=== PATIENT | male | born 1955 | race Caucasian/White ===

== ENCOUNTER 2023-11-27 22:34 | Emergency (ER) | payer MEDICARE, OTHER, SELFPAY ==
[2023-11-27 22:41] VITALS: BP 153/91
[2023-11-27 22:43] LABS: Glucose - Point of Care 143 mg/dl (70-99)
--- NOTE | 2023-11-27 22:44 | ED.GENMED ---
History of Present Illness
General
Chief Complaint: Fall
Source: patient and ambulance crew
Exam Limitations: altered mental status
Time Seen by Provider: 11/27/23 22:37
Nursing documentation reviewed up to this point in time: agreed with
History of Present Illness
History of Present Illness:
This is a 68-year-old gentleman who resides at home with his . He arrives via EMS with history of suffering a mechanical fall while attempting to take something out of his car. [place] recently [place] [facility] [place]
He fell onto his left side striking the left side of his head. Apparently witnessed by . He arrives via EMS and upon arrival is noted to have significant expressive aphasia/significant word searching which apparently is new.
There is also reported history of alcohol abuse.
A list of medications has accompanied the patient which includes: Jardiance, metformin, atorvastatin, glucosamine, B12, B1, B complex, Rybelsus, citalopram, quetiapine fumarate.
History is significantly limited due to patient's significant expressive aphasia. He is able to follow a few simple commands.
We are awaiting 's arrival.
No old records to review.
Past History
Past History
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
ED Past Surgical History: Appendectomy and Orthopedic (Lumbar spinal surgery/spinal fusion, spinal stimulator; carpal tunnel release, rotator cuff repair)
Social History
Tobacco: Smoker
Alcohol: Former
Drug: None
Personal:
Living: with family
Employment: Retired
Family History
Family History: Unable to obtain
Phy Exam
Physical Exam
Physical Exam:
TRAUMA EXAM:
VITAL SIGNS: Vital signs reviewed, cooperative
DISTRESS: No active disease
EYES: Pupils reactive, extraocular muscles appear intact/full.
NOSE: No deformity or epistaxis
FACE AND SCALP: There is contusion/abrasion left lateral facial region with no active bleeding. There is a 2.5 cm laceration left lateral brow with abrasion medial aspect of the laceration. minimal bleeding. Mild local tenderness to palpation
left lateral facial region.
NECK: Supple, no midline bony tenderness, no step-off deformity.
BACK: Back nontender, pelvis stable to compression
RESPIRATORY: No distress, breath sounds normal, mild to moderate tenderness left anterior chest wall with mild STS left anterior chest wall. no crepitus.
CARDIAC: No murmur, pulses equal and strong
ABDOMEN: Soft nontender bowel sounds normal
SKIN: Warm and dry, normal color. Moderately tanned sun exposed skin.
EXTREMITIES: There is a 1 cm very superficial abrasion ulnar aspect of the left hand as well as contusion with mild ecchymosis ulnar aspect of the left wrist. No significant tenderness to palpation and full wrist range of motion with mild pain with
full flexion and extension of left wrist. There is a 1.5 cm very superficial skin abrasion left lateral knee. No ecchymosis nor soft tissue swelling, no tenderness. Full knee and hip range of motion without difficulty nor pain.
NEUROLOGICAL: Patient is awake and alert and able to follow a few simple commands but exhibits significant expressive aphasia/significant word searching. Motor strength is equal and full 5/5 bilaterally. No drift. Gross sensation appears intact.
PSYCH: Mood affect normal
Course
Orders/Labs/Results
Orders:
Orders
11/27/23 22:42
Cardiac Monitoring- Treatment ONCE
11/27/23 22:43
CT Cervical Spine W/o Iv Contr Urgent
Comment:
Reason For Exam: fall, head injury, confusion, intoxicated
CT Facial Bones W/o Iv Contras Urgent
Comment:
Reason For Exam: fall, left facial trauma
CT Head W/o Iv Contrast Urgent
Comment:
Reason For Exam: fall head injury, confusion
11/27/23 22:44
Bedside Glucose- Treatment ONCE
11/27/23 22:48
Alcohol Urgent
Complete Blood Count/With Diff Urgent
Comprehensive Metabolic Panel Urgent
Lipase Urgent
Protime/PTT Urgent
11/27/23 23:02
CR Wrist - Left Min 3 Views Urgent
Comment:
Reason For Exam: fall, ulnar wrist pain/contusion
11/27/23 23:58
Urinalysis Reflex To Culture Urgent
Date Specimen was Collected: 11/27/23
Time Specimen was Collected: 23:57
Urine Drug Abuse Screen Urgent
Date Specimen was Collected: 11/27/23
Time Specimen was Collected: 23:57
11/28/23 00:37
Ketorolac [Toradol] 30 mg IV NOW STA
Ribs, Left 3 View W/PA Chest CR [CR Ribs-left 3 Vw W/pa Chest] Urgent
Comment:
Reason For Exam: fall, left ant chest contusion/pain
11/28/23 00:42
Cephalexin Monohydrate [Keflex] 500 mg PO NOW STA
Abnormal Lab Results
11/27/23 11/27/23 11/27/23
22:41 22:48 23:58
MCHC 32.7 L g/dL
(33.0-37.0)
Abs Immat Gran (auto) 0.1 H 10^3/uL
(0-0.05)
Absolute Monos (auto) 0.7 H 10^3/uL
(0.1-0.6)
Immature Gran % 0.8 H %
(0-0.5)
BUN 25 H mg/dl
(9-20)
Glucose 140 H mg/dl
(70-99)
Lipase 389 H U/L
(23-300)
Urine Glucose 3+ A
(Negative)
POC Glucose 143 H mg/dl
(70-99)
11/27/23 22:48
11/27/23 22:48
Vital Signs
Initial and Last Documented VS:
Initial Vital Signs
Pulse Resp
78 16
11/27/23 22:40 11/27/23 22:40
Last Documented Vital Signs
Pulse Resp BP Pulse Ox
82 19 156/81 94
11/28/23 00:52 11/28/23 00:52 11/28/23 01:12 11/28/23 01:13
Procedures
Laceration Closure
Left Lateral Eye brow:
Status of Wound: clean
Description of Wound Edges: ragged and surrounded by abrasion
Preparation: cleaned with saline and cleaned with Betadine
Anesthesia: 1% Lidocaine with epi
Revision/Debridement: routine- no revision and irrigate-direct pressure
Wound exploration: explored to base- no FB and no tendon involvement
Type of Closure: single layer closure
Skin Closure Material: 5-0 nylon
Number of sutures: 5
MDM/Problems Addressed
Differential Diagnosis Includes:
Concern for acute traumatic intracranial bleeding, concern for acute CVA, alcohol intoxication.
Due to concern for acute expressive aphasia, confusion, concern for alcohol intoxication accompanied with head injury, left facial injury, will check CT of the head, CT of the cervical spine as well as CT facial bones.
Will check labs including alcohol and UDS.
On exam he is also noted to have very superficial abrasion left lateral knee, left lateral hand as well as ecchymosis to left ulnar aspect of the wrist. Will check left wrist x-ray. He has full range of motion of extremities without difficulty nor
apparent pain.
Chronic conditions affecting care: DM, Psychiatric illness and Other (History of alcohol abuse)
*Radiology
Radiology exam reviewed: preliminary read by ED provider (Left wrist x-ray is negative for fracture. Left ribs/chest x-ray are unremarkable. No evidence of rib fracture, no pneumothorax.) and radiology read reviewed (CT of the head, cervical
spine, facial bones shows no evidence of acute traumatic finding.)
*Pulse Oximetry
Patient hypoxic: no
*Densitometer Reader Interpretation
Rate: normal
Interpretation: normal
Rhythm: sinus
*Critical Care Note
Total Time (30-74mins, 75-104mins- exclusive of procedures): Not Applicable
Update Note
Update Note:
11/27/2023 2255 PM
is now at bedside and reports the patient has prior history of alcohol abuse with history of alcohol related dementia with expressive aphasia that is chronic and unchanged. He has been sober for at least the past 6 months and denies recent
alcohol use.
She and her [place] [facility] [place], returned tonight and he was grabbing a cooler out of the car when he suffered a mechanical fall which she did not witness but heard the thud and found her lying on his left side, he was
unable to get up and at the time was complaining of some left wrist pain and left hip pain. She called 911 and notes that patient generally goes to [facility] but was told that [facility] was busy and thus came to [facility] instead.
He is up-to-date with Tdap having received this with annual influenza vaccine just last week.
11/28/[address] head, cervical spine, facial bones showed no acute fracture.
Left lateral brow laceration suture repaired.
Patient now complains of some focal left anterior chest pain and noted to have moderate tenderness on palpation left anterior chest wall with mild local soft tissue swelling. Concern for contusion, concern for rib fracture. He continues to have no
respiratory distress. Will check chest x-ray/left rib series.
Will medicate for pain with an IV dose of Toradol.
11/28/2023 0124 AM
Patient feeling improved after an IV dose of Toradol.
Chest x-ray/rib series shows no evidence of rib fracture, no pneumothorax nor pleural effusion.
Labs are unremarkable. Lipase minimally elevated but patient continues to have no abdominal pain and abdomen remains soft without appreciable tenderness.
Will discharge to home with prescription for 1 week course of Keflex.
Discussed routine sutured wound care.
Tylenol versus ibuprofen as needed for pain.
Follow-up with PCP for recheck.
ED Attending Note
-
Portions of this chart may have been created with voice recognition software.� Occasional wrong word or��sound alike� substitutions may have occurred due to the inherent limitations of voice recognition software.
Discharge Plan
Departure
Patient Disposition: Home (Routine Discharge)
Date of Disposition: 11/28/23
Time of Disposition: 01:17
Patient with high blood pressure during this ER visit?: No
Condition: Good
Discharge Problem:
Slip and fall at home, Laceration of eyebrow, left, left facial contusion, Contusion of left chest wall, Contusion of left wrist, initial encounter, left lateral knee abrasion
Instructions: Head Injury in Adults (DC), Contusion (DC), Laceration Repair With Stitches (DC), Preventing falls in adults, Skin Abrasions (DC)
Prescriptions:
New
cephalexin 500 mg capsule
1,000 mg PO BID 7 Days Qty: 28 0RF
No Action
quetiapine 25 mg Tablet
25 mg PO HS
atorvastatin 40 mg Tablet
40 mg PO HS
metformin 500 mg Tablet
500 mg PO BID
citalopram 10 mg Tablet
10 mg PO DAILY
cyanocobalamin (vitamin B-12) [Vitamin B-12] 1,000 mcg Tablet
1,000 mcg PO DAILY
thiamine HCl (vitamin B1) [Vitamin B-1] 250 mg Tablet
250 mg PO DAILY
vitamin B complex [B Complex] Capsule
1 cap PO DAILY
Jardiance 10 mg Tablet
10 mg PO DAILY
Rybelsus 14 mg Tablet
14 mg PO DAILY
Referrals:
Naveen Sánchez DO [Family Provider] - Follow up in 1 week
Interventions
Interventions:
*Risk Screen - Suicide Last Done: 11/27/23 22:36
*General Assessment Last Done: 11/27/23 22:36
*Neglect/Abuse Screening Last Done: 11/27/23 22:36
*ED COVID-19 Vaccine History Last Done: 11/27/23 22:36
ED-Musculoskeletal Assessment Last Done: 11/27/23 23:00
ED- Neurological Assessment Last Done: 11/27/23 23:00
ED-Skin Assessment Last Done: 11/27/23 23:00
Discharge Date and Time
Print Language: THAI
[2023-11-27 22:54] LABS: % Basophils 0.9 % (0-2); % Eosinophils 3.8 % (0-6); % Immature Granulocytes 0.8 % (0-0.5); % Lymphocytes 31.1 % (20.5-51.1); % Monocytes 7.6 % (1.7-9.3); % Neutrophils 55.8 % (42.2-75.2); Absolute Basophils 0.1 10^3/uL (0-0.2); Absolute Eosinophils 0.3 10^3/uL (0-0.7); Absolute Immature Granulocytes 0.1 10^3/uL (0-0.05); Absolute Lymphocytes 2.8 10^3/uL (1.2-3.4); Absolute Monocytes 0.7 10^3/uL (0.1-0.6); Hematocrit 44.7 % (39.0-52.0); Hemoglobin 14.6 g/dL (13.0-18.0); Mean Corp Hgb Conc. 32.7 g/dL (33.0-37.0); Mean Corpuscular Hgb 29.6 pg (27.0-31.0); Mean Corpuscular Volume 90.7 fL (80.0-94.0); Mean Platelet Volume 10.3 fL (7.4-10.4); Nucleated Red Blood Cells % 0 % (-); Platelet Count 211 10^3/uL (130-400); Red Blood Cell Count 4.93 10^6/uL (4.70-6.10); Red Cell Dist. Width 13.2 % (11.5-14.5); White Blood Cell Count 8.9 10^3/uL (4.8-10.8)
[2023-11-27 23:00] VITALS: BP 153/91
[2023-11-27 23:02] VITALS: BMI 29.1
[2023-11-27 23:05] LABS: APTT 24.7 Sec (23.4-35.0); INR 0.94; PT 12.4 Sec (11.4-14.6)
[2023-11-27 23:17] LABS: ALT (SGPT) 21 U/L (0-50); AST (SGOT) 24 U/L (17-59); Albumin 4.3 g/dl (3.5-5.0); Alkaline Phosphatase 72 U/L (38-126); Blood Urea Nitrogen 25 mg/dl (9-20); Calcium 9.4 mg/dl (8.4-10.2); Carbon Dioxide 28 mmol/L (22-30); Chloride 103 mmol/L (98-107); Estimated Creatinine Clearance 78 ml/min; Glucose 140 mg/dl (70-99); Lipase 389 U/L (23-300); Potassium 4.4 mmol/L (3.5-5.1); Sodium 142 mmol/L (135-145); Total Bilirubin 0.3 mg/dl (0.2-1.3); Total Protein 6.8 g/dl (6.3-8.2); eGFR > 60.00
[2023-11-27 23:19] LABS: Alcohol None Detected
[2023-11-28] VITALS: BP 169/89
[2023-11-28 00:04] LABS: Urine Albumin Trace (Neg - Trace); Urine Bilirubin Negative (Negative); Urine Character Clear (Clear); Urine Color Yellow; Urine Glucose 3+ (Negative); Urine Ketone Negative (Negative); Urine Leukocyte Negative (Negative); Urine Nitrite Negative (Negative); Urine Occult Blood Negative (Negative); Urine Specific Gravity 1.015 (<1.030); Urine Urobilinogen Negative (Neg - 1+)
[2023-11-28 00:24] LABS: Amphetamines Negative (Negative); Barbiturates Negative (Negative); Benzodiazepines Negative (Negative); Buprenorphine Negative (Negative); Cocaine Negative (Negative); Marijuana Negative (Negative); Methadone Negative (Negative); Methamphetamines Negative (Negative); Opiates Negative (Negative); Phencyclidine Negative (Negative); Tricyclic Antidepressants Negative (Negative)
[2023-11-28] MEDS: TORADOL 30 MG IV (00:43)
[2023-11-28] MEDS: KEFLEX 500 MG PO (00:46)
[2023-11-28 01:12] VITALS: BP 156/81
== END 2023-11-28 01:24 | disposition home or self-care (01) ==
LOC: EMR 22:34
PROVIDERS: EMERGENCY PHYSICIAN Emergency Medicine; FAMILY PHYSICIAN Family Medicine
DX: S01.112A Laceration without foreign body of left eyelid and periocular area, initial encounter (principal); S20.212A Contusion of left front wall of thorax, initial encounter; S60.212A Contusion of left wrist, initial encounter; S80.212A Abrasion, left knee, initial encounter; W01.0XXA Fall on same level from slipping, tripping and stumbling without subsequent striking against object, initial encounter; Y92.009 Unspecified place in unspecified non-institutional (private) residence as the place of occurrence of the external cause; R47.01 Aphasia; E78.00 Pure hypercholesterolemia, unspecified; E11.9 Type 2 diabetes mellitus without complications; F10.10 Alcohol abuse, uncomplicated; F17.200 Nicotine dependence, unspecified, uncomplicated; Z90.49 Acquired absence of other specified parts of digestive tract; Z98.1 Arthrodesis status
CPT/HCPCS: 99284; 12011; 96374; 70450; 70486; 71101; 72125; 73110; 80053; 80306; 81003; 82077; 82962; 83690; 85025; 85610; 85730